=== PATIENT | female | born 1970 | race Caucasian/White ===

== ENCOUNTER 2024-05-10 14:00 | Inpatient (IN) | payer OTHER ==
[2024-05-10] VITALS (8 sets, daily range): BP systolic 72–141; BP diastolic 39–106
[~2024-05-10] VITALS: Ht 167.6 cm; Wt 61.2 kg
[2024-05-10 15:19] LABS: HEMATOCRIT 42.7 % (37.0-47.0); MEAN CELL VOLUME 87.1 fl (81.0-99.0); MEAN CORPUSCULAR HGB 28.8 pg (27.0-31.0); MEAN PLATELET VOLUME 10.9 fl (9.6-12.3); PLATELET COUNT AUTOMATED 387 10*3/uL (130-400); RED CELL DISTRI WIDTH 12.4 % (0-14.5); WHITE BLOOD COUNT 19.6 10*3/uL (4.8-10.8)
[2024-05-10 15:27] LABS: MANUAL DIFF REFLEX YES
[2024-05-10 15:44] LABS: ALKALINE PHOSPHATASE 62 U/L (46-116); BASOPHILS 1 % (0-1); BUN 14 mg/dl (9-23); CHLORIDE 95 mmol/L (98-107); SGPT/ALT 13 U/L (5-49); TOTAL CELLS COUNTED 100 #CELLS; TOTAL PROTEIN 7.5 gm/dL (6.0-8.0)
[2024-05-10 15:45] LABS: ETHYL ALCOHOL < 3.0 mg/dl (<3); PLATELET SUFFICIENCY NORMAL (NORMAL)
[2024-05-10 15:46] LABS: POTASSIUM 2.4 mmol/L (3.4-5.1)
[2024-05-10] MEDS ORDERED: POTASSIUM CHLORIDE 20 MEQ TAB PO ONE (15:50)
[2024-05-10] MEDS ORDERED: POTASSIUM CHLORIDE IN WATER 100 ML IV SCH (16:00)
[2024-05-10] MEDS ORDERED: SODIUM CHLORIDE 0.9% 1,000 ML IV ONE ×2 (16:00→23:00)
[2024-05-10] MEDS ORDERED: SODIUM BICARBONATE 5 MEQ/10 ML SYR IV ONE (17:15)
[2024-05-10] MEDS ORDERED: MAGNESIUM SULFATE 50 ML IV ONE (17:15)
[2024-05-10] MEDS ORDERED: SODIUM BICARBONATE 50 MEQ/50 ML VIAL IV ONE (17:20)
[2024-05-10] MEDS ORDERED: HYDROCHLOROTHIA25 M1 PO (18:07)
[2024-05-10] MEDS ORDERED: AMLODIPINE BESYL5 MG PO (18:07)
[2024-05-10] MEDS ORDERED: Scopolamine 1 PATCH PATCH T SCH (18:10)
[2024-05-10 19:23] LABS: BILIRUBIN Negative (Negative); BLOOD Negative (Negative); CLARITY Cloudy (Clear); COLOR Yellow (Yellow); GLUCOSE Negative (Negative); KETONE 1+ (Negative); LEUKO ESTERASE 1+ (Negative); NITRITE Negative (Negative); PH 7.5 (4.5-8.0)
[2024-05-10 19:30] LABS: URINE AMPHETAMINES Negative (1000ng/ml); URINE BARBITURATES Negative (200ng/ml); URINE BENZODIAZEPINES Negative (200ng/ml); URINE CANNABINOIDS (THC) Negative (50ng/ml); URINE COCAINE Negative (300ng/ml); URINE METHADONE Negative (300ng/ml); URINE OPIATES Negative (300ng/ml); URINE PHENCYCLIDINE Negative (25ng/ml)
[2024-05-10 19:40] LABS: BACTERIA 2+
[2024-05-10 22:19] LABS: VENOUS BLOOD GAS O2 SAT 81.2 % (60.0-85.0)
[2024-05-10] MEDS ORDERED: CEFDINIR 300 MG CAP PO SCH (23:00)
[2024-05-10 23:56] LABS: BUN 15 mg/dl (9-23); CHLORIDE 96 mmol/L (98-107); POTASSIUM 3.3 mmol/L (3.4-5.1)
[2024-05-11] VITALS (10 sets, daily range): BP systolic 86–118; BP diastolic 50–75
[2024-05-11] MEDS ORDERED: POTASSIUM CHLORIDE 20 MEQ TAB PO ONE (00:15)
[2024-05-11] MEDS ORDERED: POTASSIUM CHLORIDE 100 ML IV ONE ×2 (00:35→02:00)
[2024-05-11] MEDS ORDERED: POTASSIUM CHLORIDE IN WATER 100 ML IV SCH (01:00)
[2024-05-11] MEDS ORDERED: MAGNESIUM SULFATE 50 ML IV ONE (04:50)
[2024-05-11] MEDS ORDERED: SODIUM BICARBONATE IV SCH (06:05)
[2024-05-11] MEDS ORDERED: [UNRECOGNIZED DRUG - OTHER] IV SCH (06:05)
[2024-05-11] MEDS ORDERED: DEXTROSE IV SCH (06:05)
[2024-05-11] MEDS ORDERED: SODIUM BICARBONATE 50 MEQ/50 ML VIAL IV ONE ×3 (06:15→12:10)
[2024-05-11] MEDS ORDERED: SODIUM BICARBONATE IV ONE (06:15)
[2024-05-11 06:26] LABS: ACT PARTIAL THROMBO TIME 25.6 SECONDS (20.0-32.1)
[2024-05-11 07:02] LABS: BASO # 0.1 10*3/uL (0.0-0.1); BASO % 0.4 % (0.0-1.0); EOS # 0.1 10*3/uL (0.0-0.4); EOS % 0.7 % (1.0-4.0); HEMATOCRIT 38.4 % (37.0-47.0); MEAN CELL VOLUME 87.7 fl (81.0-99.0); MEAN CORPUSCULAR HGB 29.2 pg (27.0-31.0); MEAN CORPUSCULAR HGB CONC 33.3 g/dl (33.0-37.0); MEAN PLATELET VOLUME 11.1 fl (9.6-12.3); NEUT # 9.3 10*3/uL (2.3-7.9); NEUT % 75.2 % (47.0-73.0); PLATELET COUNT AUTOMATED 328 10*3/uL (130-400); RED BLOOD COUNT 4.38 10*6/uL (4.10-5.10); RED CELL DISTRI WIDTH 12.8 % (0-14.5); WHITE BLOOD COUNT 12.4 10*3/uL (4.8-10.8)
[2024-05-11 07:09] LABS: ALKALINE PHOSPHATASE 54 U/L (46-116); BUN 8 mg/dl (9-23); CHLORIDE 103 mmol/L (98-107); CHOLESTEROL 128 mg/dL (<200); FREE T4 1.63 ng/dl (0.89-1.76); LDL CHOLESTEROL 55 mg/dL (9-159); SGPT/ALT 13 U/L (5-49); TOTAL PROTEIN 6.4 gm/dL (6.0-8.0); TRIGLYCERIDES 101 mg/dl (<150)
[2024-05-11 07:47] LABS: POTASSIUM 4.2 mmol/L (3.4-5.1)
[2024-05-11] MEDS ORDERED: SODIUM CHLORIDE 0.9% 1,000 ML IV ONE (08:00)
[2024-05-11] MEDS ORDERED: Enoxaparin Sodium 40 MG/0.4 ML SYR SC SCH (10:00)
[2024-05-11 11:37] LABS: VITAMIN D, 25-HYDROXY 47.2 ng/mL (30-100)
[2024-05-11] MEDS ORDERED: SODIUM CHLORIDE 0.9% 1,000 ML IV SCH (16:00)
[2024-05-11 17:07] LABS: ABG BASE EXCESS 0.6 mmol/L (-2.0-3.0); ABG O2 SATURATION 96.5 % (94.0-98.0); ARTERIAL BLOOD GAS PH 7.433 (7.350-7.450); ARTERIAL BLOOD GAS PO2 89.8 mmHg (83.0-108.0)
[2024-05-12] VITALS: BP 123/69
[2024-05-12 04:00] VITALS: BP 104/56
[2024-05-12 04:33] LABS: BASO % 0.7 % (0.0-1.0); EOS # 0.1 10*3/uL (0.0-0.4); EOS % 1.3 % (1.0-4.0); HEMATOCRIT 34.8 % (37.0-47.0); MEAN CORPUSCULAR HGB 28.9 pg (27.0-31.0); MEAN CORPUSCULAR HGB CONC 31.6 g/dl (33.0-37.0); MEAN PLATELET VOLUME 11.3 fl (9.6-12.3); MONO # 0.5 10*3/uL (0.1-1.0); MONO % 7.9 % (3.0-9.0); NEUT # 3.9 10*3/uL (2.3-7.9); NEUT % 64.2 % (47.0-73.0); PLATELET COUNT AUTOMATED 242 10*3/uL (130-400); RED BLOOD COUNT 3.81 10*6/uL (4.10-5.10); RED CELL DISTRI WIDTH 13.1 % (0-14.5); WHITE BLOOD COUNT 6.1 10*3/uL (4.8-10.8)
[2024-05-12 04:36] LABS: MEAN CELL VOLUME 91.3 fl (81.0-99.0)
[2024-05-12 04:44] LABS: BUN 10 mg/dl (9-23); CHLORIDE 110 mmol/L (98-107)
[2024-05-12 04:54] LABS: POTASSIUM 5.2 mmol/L (3.4-5.1)
[2024-05-12 08:00] VITALS: BP 132/73
[2024-05-12] MEDS ORDERED: CEFDINIR300 MG PO (09:47)
== END 2024-05-12 15:00 | DRG 918 ==
LOC: ED 14:00 → EDHOLD 17:29 → ICCU 17:29
PROVIDERS: Internal Medicine; Internal Medicine Pulmonary Disease; ADMIT Student in an Organized Health Care Education/Training Program; ATTEND Student in an Organized Health Care Education/Training Program
DX: T43.211A Poisoning by selective serotonin and norepinephrine reuptake inhibitors, accidental (unintentional), initial encounter (principal); N30.00 Acute cystitis without hematuria; E87.1 Hypo-osmolality and hyponatremia; E87.6 Hypokalemia; T39.1X4A Poisoning by 4-Aminophenol derivatives, undetermined, initial encounter; D72.829 Elevated white blood cell count, unspecified; R73.9 Hyperglycemia, unspecified; I95.2 Hypotension due to drugs; I10 Essential (primary) hypertension; F43.21 Adjustment disorder with depressed mood; Z79.899 Other long term (current) drug therapy; Z82.49 Family history of ischemic heart disease and other diseases of the circulatory system; Z83.42 Family history of familial hypercholesterolemia; Z79.01 Long term (current) use of anticoagulants; Z79.2 Long term (current) use of antibiotics; Y92.89 Other specified places as the place of occurrence of the external cause